=== PATIENT | male | born 2000 | race Caucasian/White ===

== ENCOUNTER 2022-03-12 18:51 | Emergency (ER) | payer OTHER ==
[~2022-03-12] VITALS: Ht 170.2 cm; Wt 88.5 kg
[2022-03-12 19:05] VITALS: BP_SYST 127
--- NOTE | 2022-03-12 19:05 | NUR ---
Pt to remain in the ER lobby until an ER bed becomes available.
--- NOTE | 2022-03-12 21:16 | NUR ---
Patient to ER bed HW to gown for evaluation. Side rails up.
--- NOTE | 2022-03-12 21:17 | NUR ---
DR HARDING IN ROOM FOR EXAM
--- NOTE | 2022-03-12 21:17 | NUR ---
PT COME TO ER WITH FINGER CUT TO RT INDEX FINGER WHILE WORKING AT [employer] USING A FISHER CLAM. NO ACTIVE BLEEDING NOTED.
[2022-03-12] MEDS ORDERED: DIPH-TET-PERTUS Vaccine 0.5 ML VIAL (ADACEL) I.M. ONE (21:45)
[2022-03-12 21:56] VITALS: BP_SYST 136
--- NOTE | 2022-03-12 21:56 | NUR ---
Patient given written and verbal discharge instructions and verbalizes understanding. ER MD discussed with patient the results and treatment provided. Patient in stable condition. ID arm band removed. Patient educated on pain management and to follow up with PMD. Pain Scale [0]. Opportunity for questions provided and answered. Medication side effect fact sheet provided.
== END 2022-03-12 21:56 | disposition home or self-care (01) ==
LOC: SED 18:51
DX: S61.210A Laceration without foreign body of right index finger without damage to nail, initial encounter (principal); X58.XXXA Exposure to other specified factors, initial encounter; Y93.89 Activity, other specified; Y92.512 Supermarket, store or market as the place of occurrence of the external cause; Y99.8 Other external cause status
CPT/HCPCS: 90715; 99283